=== PATIENT | male | born 1980 | race African-American/Black ===

== ENCOUNTER 2019-11-01 15:23 | Emergency (ER) | payer OTHER ==
[~2019-11-01] VITALS: Ht 175.3 cm; Wt 79.1 kg
[2019-11-01 15:28] VITALS: BP 116/71; TEMP 98.8
[2019-11-01] MEDS ORDERED: AMOXICILLIN 8751 TAB PO (16:36)
[2019-11-01] MEDS ORDERED: NORCO 325 MG-51 TAB PO (16:36)
[2019-11-01 17:25] VITALS: PULSE 56
== END 2019-11-01 17:25 | disposition home or self-care (01) ==
LOC: COL.ER 15:23
DX: T23.292A Burn of second degree of multiple sites of left wrist and hand, initial encounter (principal); T54.2X1A Toxic effect of corrosive acids and acid-like substances, accidental (unintentional), initial encounter